=== PATIENT | male | born 1940 | race Caucasian/White ===

== ENCOUNTER 2018-04-21 08:30 | Outpatient (RCR) | payer MEDICARE, OTHER | END 2018-07-13 | disposition home or self-care (01) | LOC: WSST | DX: J44.9 Chronic obstructive pulmonary disease, unspecified (principal); F17.210 Nicotine dependence, cigarettes, uncomplicated; Z79.02 Long term (current) use of antithrombotics/antiplatelets ==

== ENCOUNTER → 2018-04-21 | Outpatient (CLI) | payer MEDICARE, OTHER ==
[~2018-04-21] MED LIST: ASPIRIN 81M81 MG/TA2 PO; AZULFIDINE500 MG/TAB PO; FOLIC ACID 11 MG/TA1 PO; IPRATROPIUM BROM3 M1 IH; IRON325 MG PO; LEVAQUIN 750MG750 M1 PO; LIPITOR 80MG80 MG PO; METOPROLOL PO; NITROSTAT0.3 MG SL; OMNICEF 300MG300 MG PO; PAXIL 20MG20 MG PO; PLAVIX 75MG TAB75 MG PO; PREDNISONE20 MG PO; PROTONIX 40MG T40 MG PO; ZESTRIL 10MG10 MG PO; ZITHROMAX 250M250 MG PO
== END ==
LOC: COL.RAD 08:30
DX: R05 Cough (principal); R13.10 Dysphagia, unspecified

== ENCOUNTER → 2019-12-20 | Outpatient (CLI) | payer MEDICARE, OTHER | LOC: COL.RAD 11:23 | DX: E04.2 Nontoxic multinodular goiter (principal) ==

== ENCOUNTER → 2020-12-04 | Outpatient (CLI) | payer MEDICARE | LOC: COL.RAD 11:45 | DX: E07.9 Disorder of thyroid, unspecified (principal); E04.1 Nontoxic single thyroid nodule ==

== ENCOUNTER → 2023-03-31 | Outpatient (CLI) | payer MEDICARE ==
[~2023-03-31] MED LIST changes: +MAG-OX 400400 MG/TAB PO; -PAXIL 20MG20 MG PO; +PAXIL40 MG PO; +PROAIR HFA0.09 MG/AC IH; +TOPROL XL 25MG25 MG PO
== END ==
LOC: COL.RAD 08:28
DX: M25.551 Pain in right hip (principal)
CPT/HCPCS: J0665; J3301; Q9967

== ENCOUNTER 2023-04-07 16:20 | Inpatient (IN) | payer MEDICARE ==
[~2023-04-07] VITALS: Ht 175.3 cm; Wt 79.3 kg
[2023-04-07] VITALS (7 sets, daily range): BP systolic 105–120; BP diastolic 2–71; PULSE 72–106; TEMP 97.7–99.1
[~2023-04-07 16:20] MED LIST changes: -MAG-OX 400400 MG/TAB PO; -PROAIR HFA0.09 MG/AC IH; -TOPROL XL 25MG25 MG PO
--- NOTE | 2023-04-07 17:00 | NUR ---
PATIENT ARRIVED TO THE UNIT IN STABLE CONDITION. HE DENIES ANY NEEDS OR COMPLAINTS AT THIS TIME. VSS. FAST ASSESSMENT COMPLETED. MED REC UPDATED. FALL PRECAUTIONS INITIATED. CALL LIGHT WITHIN REACH.
--- NOTE | 2023-04-07 19:00 | NUR ---
PATIENT COMPLAINED OF SOME SOB. O2 SA RECHECKED AND 88% ON ROOM AIR. PATIENT VOICED RELIEF WHEN SITTING UPRIGHT WITH 2LNC. CALL LIGHT WITHIN REACH.
[2023-04-07 19:11] LABS: HEMOGLOBIN 11.7 g/dl (13.5-18.0); MEAN CELL VOLUME 89 fl (80.0-100.0); MEAN CORPUSCULAR HEMOGLOBIN 29 pg (27-31); MEAN CORPUSCULAR HGB CONC 32 g/dl (33.0-37.0); MEAN PLATELET VOLUME 9.8 fl (7.4-10.4); PLATELET COUNT 603 K/mm3 (130-400); RED BLOOD COUNT 4.07 M/mm3 (4.20-5.60); REDCELL DISTRIBUTION WIDTH-CV 15.1 % (11.5-14.5)
[2023-04-07 19:15] LABS: HEMATOCRIT 36.3 % (42.0-52.0)
[2023-04-07 19:24] LABS: CALCIUM 9.3 mg/dL (8.4-10.2); CREATININE, serum 0.85 mg/dL (0.72-1.25); POTASSIUM 4.1 mmol/L (3.5-4.5)
--- NOTE | 2023-04-07 19:32 | NUR ---
Reported WBC=31.7 to [facility] ROJAS
--- NOTE | 2023-04-07 19:56 | NUR ---
Bedside report received from MAVERICK Thomas. Pt is awake in bed with no complaints. Call light within reach.
[2023-04-08] VITALS (11 sets, daily range): BP systolic 92–117; BP diastolic 56–73; PULSE 69–107; TEMP 97.9–98.3
[2023-04-08 06:10] LABS: MEAN CELL VOLUME 87 fl (80.0-100.0); MEAN CORPUSCULAR HEMOGLOBIN 29 pg (27-31); MEAN CORPUSCULAR HGB CONC 34 g/dl (33.0-37.0); MEAN PLATELET VOLUME 9.6 fl (7.4-10.4); PLATELET COUNT 543 K/mm3 (130-400); RED BLOOD COUNT 3.77 M/mm3 (4.20-5.60); REDCELL DISTRIBUTION WIDTH-CV 14.9 % (11.5-14.5)
[2023-04-08 06:18] LABS: HEMATOCRIT 32.6 % (42.0-52.0)
[2023-04-08 06:32] LABS: CREATININE, serum 0.8 mg/dL (0.72-1.25); MAGNESIUM 1.5 mg/dL (1.6-2.6); PHOSPHOROUS 2.7 mg/dL (2.3-4.7); POTASSIUM 4.1 mmol/L (3.5-4.5)
--- NOTE | 2023-04-08 06:42 | NUR ---
Attempted to contact Hospitalist for critical WBC of 22.7, hospitalist did not answer. Will try again.
[2023-04-08 07:18] LABS: BAND 6 % (0-10); EOSINOPHIL 1 % (0-4); LYMPHOCYTE 5 % (20.0-51.0); METAMYELOCYTE 3 % (0-0); MYELOCYTE 1 % (0-0); NEUTROPHILS 82 % (42.0-75.2); PLATELET ESTIMATE INCREASED (NORMAL)
--- NOTE | 2023-04-08 08:41 | NUR ---
PATIENT ALERT AND ORIENTED X4. DENIES PAIN. EXPRESSED SHORTNESS OF BREATH IS IMPROVING. HELPED ORDER BREAKFAST. PATIENT MEDS GIVEN PER EMAR. SHIFT ASSESSMENT COMPLETED. CALL LIGHT WITHIN REACH. BED AT LOWEST POSITION.
[2023-04-08] MEDS ORDERED: TOPROL XL 25MG25 MG PO (09:40)
[2023-04-08] MEDS ORDERED: AZULFIDINE500 MG/TAB PO (09:41)
--- NOTE | 2023-04-08 15:37 | NUR ---
f[employer] attempted to call pt's room phone with no response due to being in isolation. SW called patient's , Alejandra [phone] to complete discharge planning. She informed SW they live together in [place]. Pt sees Dr. Knight and obtains medications from [facility] with no difficulties. He is independent with ADLS and uses a cane for DME. Alejandra reports pt has a DPOA-HC, but she has to find it somewhere at home. MICHELLE advised she can bring it to nurse's to make a copy or SW can complete a new one. Alejandra advised pt has a pet that is ill and pt would be worried about. Alejandra asked if she could call the nurse's station for an update. MICHELLE told her she could and also could attempt the room phone. Alejandra was agreeable to this. Discharge Plan: Home
--- NOTE | 2023-04-08 19:18 | NUR ---
Bedside report received from MAVERICK Munoz. Pt is currently sitting in bed eating dinner with no complaints. Call light within reach.
[2023-04-09] VITALS (13 sets, daily range): BP systolic 90–130; BP diastolic 47–90; PULSE 63–109; TEMP 97.4–98.8
--- NOTE | 2023-04-09 06:30 | NUR ---
Pt has been in pleasant mood this shift. Shift assessment completed. VSS. Pt has no complaints at this time. Pt reports no pain. Call light within reach.
[2023-04-09 07:25] LABS: MEAN CELL VOLUME 90 fl (80.0-100.0); MEAN CORPUSCULAR HEMOGLOBIN 29 pg (27-31); MEAN CORPUSCULAR HGB CONC 32 g/dl (33.0-37.0); MEAN PLATELET VOLUME 9.7 fl (7.4-10.4); PLATELET COUNT 562 K/mm3 (130-400); RED BLOOD COUNT 3.79 M/mm3 (4.20-5.60); REDCELL DISTRIBUTION WIDTH-CV 15.1 % (11.5-14.5)
[2023-04-09 07:29] LABS: HEMATOCRIT 34.2 % (42.0-52.0)
[2023-04-09 07:31] LABS: ALBUMIN 1.9 gm/dL (3.4-4.8); CALCIUM 8.8 mg/dL (8.4-10.2); CREATININE, serum 0.72 mg/dL (0.72-1.25); MAGNESIUM 1.5 mg/dL (1.6-2.6); PHOSPHOROUS 2.9 mg/dL (2.3-4.7); POTASSIUM 3.9 mmol/L (3.5-4.5)
[2023-04-09 08:18] LABS: BAND 4 % (0-10); EOSINOPHIL 1 % (0-4); LYMPHOCYTE 6 % (20.0-51.0); METAMYELOCYTE 4 % (0-0); MYELOCYTE 1 % (0-0); NEUTROPHILS 79 % (42.0-75.2); PLATELET ESTIMATE INCREASED (NORMAL)
--- NOTE | 2023-04-09 10:51 | NUR ---
Initial visit; Patient thanked Radiologist for looking in on him and appeared that he was thankful that Radiologist answered his questions regarding the good who is taking care of him. Se seems to be doing better today and Radiologist let him know he looks better today. Radiologist wished him well and will keep him in her prayers.
--- NOTE | 2023-04-09 19:24 | NUR ---
Bedside report received from MAVERICK Munoz. Pt is currently resting in bed watching tv. Pt has no complaints at this time. Call light within reach.
--- NOTE | 2023-04-09 20:08 | NUR ---
Shift assessment completed. Pt is awake in bed watching tv. Pt reports no pain at this time. VSS. Night medications administered per EMAR. Pt has been on room air with no complications. INT to Rt forearm patent with no redness, swelling or drainage. Pt has no complaints at this time. Call light within reach.
[2023-04-10 03:55] VITALS: BP 107/72; PULSE 93; TEMP 98
[2023-04-10 04:31] VITALS: BP_SYST 107
--- NOTE | 2023-04-10 07:15 | NUR ---
PATIENT AWAKE AND ALERT, SITTING UP IN BED. PATIENT DENIES ANY NEEDS OR COMPLAINTS AT THIS TIME. CALL LIGTH WITHIN REACH, FAMILY AT BEDSIDE.
[2023-04-10 07:31] LABS: HEMATOCRIT 30.5 % (42.0-52.0); HEMOGLOBIN 9.8 g/dl (13.5-18.0); MEAN CELL VOLUME 88 fl (80.0-100.0); MEAN CORPUSCULAR HEMOGLOBIN 28 pg (27-31); MEAN CORPUSCULAR HGB CONC 32 g/dl (33.0-37.0); MEAN PLATELET VOLUME 9.9 fl (7.4-10.4); PLATELET COUNT 583 K/mm3 (130-400); RED BLOOD COUNT 3.45 M/mm3 (4.20-5.60); REDCELL DISTRIBUTION WIDTH-CV 14.8 % (11.5-14.5)
[2023-04-10 07:43] LABS: ALBUMIN 1.9 gm/dL (3.4-4.8); CALCIUM 8.5 mg/dL (8.4-10.2); CREATININE, serum 0.68 mg/dL (0.72-1.25); MAGNESIUM 1.5 mg/dL (1.6-2.6); PHOSPHOROUS 2.7 mg/dL (2.3-4.7); POTASSIUM 3.9 mmol/L (3.5-4.5)
[2023-04-10 08:00] LABS: BAND 5 % (0-10); EOSINOPHIL 2 % (0-4); LYMPHOCYTE 7 % (20.0-51.0); MYELOCYTE 1 % (0-0)
[2023-04-10 08:02] VITALS: BP 100/60; PULSE 96; TEMP 98
[2023-04-10 08:02] LABS: PLATELET ESTIMATE INCREASED (NORMAL)
[2023-04-10 08:03] LABS: HYPOCHROMIA 1+
[2023-04-10 08:04] LABS: NEUTROPHILS 78 % (42.0-75.2)
[2023-04-10 09:00] VITALS: BP_SYST 100
[2023-04-10] MEDS ORDERED: OMNICEF 300MG300 MG PO (09:15)
[2023-04-10] MEDS ORDERED: PROAIR HFA0.09 MG/AC IH (09:16)
[2023-04-10] MEDS ORDERED: MAG-OX 400400 MG/TAB PO (09:17)
[2023-04-10] MEDS ORDERED: PREDNISONE20 MG PO (09:19)
--- NOTE | 2023-04-10 11:30 | NUR ---
PATIENT IV AND TELE REMOVED, DISCHARGE IONSTRUCTIONS, EDUCATION AND FOLOWUP APT GIVEN TO PATIENT. PATIENT VERBALIZED UNDERSTANDING OF THE ABOVE. PATIENT DENIES ANY FURTHER QUESTIONS AT THIS TIME. CALL LIGHT WITHIN REACH, PATIENT AWAITING RIDE HOME.
--- NOTE | 2023-04-10 12:00 | NUR ---
PAEINT TAKEN VIA WHEELCHAIR BY PCT TO PATIENT ENTRANCE WHERE HIS PICKED HIM UP. PATIENT LEFT IN STABLE CONDITION.
== END 2023-04-10 12:24 | disposition home or self-care (01) | DRG 871 ==
LOC: MEDICAL 16:20
PROVIDERS: ADMIT Internal Medicine
DX: A41.9 Sepsis, unspecified organism (principal); J18.9 Pneumonia, unspecified organism; J96.01 Acute respiratory failure with hypoxia; I10 Essential (primary) hypertension; I95.9 Hypotension, unspecified; I25.10 Atherosclerotic heart disease of native coronary artery without angina pectoris; K21.9 Gastro-esophageal reflux disease without esophagitis; F32.A Depression, unspecified; E83.42 Hypomagnesemia; K52.3 Indeterminate colitis; D75.839 Thrombocytosis, unspecified; D64.9 Anemia, unspecified; Z20.822 Contact with and (suspected) exposure to COVID-19; D72.829 Elevated white blood cell count, unspecified; T38.0X5A Adverse effect of glucocorticoids and synthetic analogues, initial encounter; Z87.891 Personal history of nicotine dependence; Z79.899 Other long term (current) drug therapy; Z79.02 Long term (current) use of antithrombotics/antiplatelets; Z95.5 Presence of coronary angioplasty implant and graft; Z87.442 Personal history of urinary calculi; Z23 Encounter for immunization
CPT/HCPCS: J0692; J1836; J3475